=== PATIENT | female | born 1965 | race Caucasian/White ===

== ENCOUNTER 2016-07-28 15:26 | Emergency (ER) | payer SELFPAY ==
[~2016-07-28 15:26] MED LIST: Iopamidol 370 76% 100 ML VIAL ONE; Sodium Chloride 0.9% 1,000 ML BAG ONE
[2016-07-28] MEDS ORDERED: Ondansetron HCl/PF 4 MG/2 ML Vial ONE (15:53)
[2016-07-28] MEDS ORDERED: Ketorolac Tromethamine 30 MG/ML VIAL ONE (15:53)
[2016-07-28 16:29] LABS: #Basophils 0.1 thou/uL (0.0-0.2); #Eosinphils 0.1 thou/uL (0.0-0.7); #Lymphocytes 2.5 thou/uL (1.20-3.40); #Monocytes 0.6 thou/uL (0.11-0.59); #Neutrophils 4.7 thou/uL (1.40-6.50); %Basophils 1.3 % (0.0-1.0); %Eosinophils 1.4 % (0.0-10.0); %Lymphocytes 31.2 % (21.0-51.0); %Neutrophils 59.2 % (42.0-75.0); Hemoglobin 14.6 g/dL (12.0-16.0); Mean Corpuscular HGB CONC 33.7 g/dL (32.0-36.0); Mean Corpuscular Hemoglobin 29.3 pg (27.0-31.0); Mean Corpuscular Volume 86.7 fl (81.0-99.0); Mean Platelet Volume 9.4 fL (7.4-10.4); Platelet Count 213 thou/uL (130-400); RBC Distribution Width 12.4 % (11.5-14.5); Red Blood Cell (RBC) Count 4.98 mill/uL (4.20-5.40); White Blood Cell (WBC) Count 7.9 thou/uL (4.8-10.8)
[2016-07-28 16:35] LABS: Bilirubin Negative (Negative); Blood, Urine Negative (Negative); Glucose, Urine (Dipstick) Negative (Negative); Leukocyte Negative (Negative); Nitrite Negative (Negative); Protein, Urine (Dipstick) Negative (Neg-Trace); Urobilinogen 0.2 mg/dL (0.2-1.0); pH, Urine 7.5 (5.0-9.0)
[2016-07-28 16:40] LABS: ALT (SGPT) 18 U/L (0-55); AST (SGOT) 15 U/L (5-34); Albumin 4.1 g/dL (3.5-5.0); Alkaline Phosphatase 73 U/L (40-150); Anion Gap 19 mmol/L (10-20); BUN (Urea Nitrogen) 10 mg/dL (9.8-20.1); Bilirubin, Total 0.4 mg/dL (0.2-1.2); Calc. Creatinine Clearance 0 mL/min (70-130); Calcium 9.6 mg/dL (7.8-10.44); Carbon Dioxide 23 mmol/L (22-29); Chloride 102 mmol/L (98-107); Estimated GFR-MDRD 82; Glucose 93 mg/dL (70-105); Lipase 41 U/L (8-78); Protein, Total 7.1 g/dL (6.0-8.3); Sodium 140 mmol/L (136-145)
[2016-07-28 16:46] LABS: Troponin I Less than 0.010 ng/mL (< 0.028)
[2016-07-28 16:47] LABS: CKMB 0.6 ng/mL (0-6.6)
[2016-07-28 16:48] LABS: Clarity Hazy (Clear); RBC/HPF 0-3 HPF (0-3)
[2016-07-28 16:49] LABS: Bacteria/HPF Rare-Few HPF (None Seen); Crystals/HPF RARE AMORPH PHOS HPF (Negative); Renal Epithelial 0-3 HPF (0-3); Squamous Epithelial 21-50 HPF (0-3); Transitional Epithelial 0-3 HPF (0-3)
[2016-07-28 18:18] LABS: Bilirubin Negative (Negative); Blood, Urine Negative (Negative); Clarity Clear (Clear); Glucose, Urine (Dipstick) Negative (Negative); Leukocyte Negative (Negative); Nitrite Negative (Negative); Protein, Urine (Dipstick) Negative (Neg-Trace); Specific Gravity, Urine 1.015 (1.005-1.030); Urobilinogen 0.2 mg/dL (0.2-1.0)
[2016-07-28 18:19] LABS: RBC/HPF 0-3 HPF (0-3); WBC/HPF 0-3 HPF (0-3)
--- NOTE | 2016-07-28 20:06 | ERRECORD ---
[facility] EMERGENCY RECORD HPI ABDOMINAL PAIN (16:05 LHOD) CHIEF COMPLAINTS: Patient presents for evaluation of abdominal pain. HISTORIAN: History provided by patient. TIME COURSE: 1 1/2 WEEKS OF EPIGASTRIC DISCOMFORT AFTER EATING. VERY LITTLE APPETITE. ALSO INTERMITTENT RIGHT LOWER ABDOMEN TENDERNESS WITH RADIATION TO RIGHT LOWER BACK. NO NAUSEA, VOMITING OR DIARRHEA. NO MELENA. ROS (16:08 LHOD) CONSTITUTIONAL: Historian denies fever. CARDIOVASCULAR: Historian denies chest pain. RESPIRATORY: Historian denies cough, denies shortness of breath. GI: Historian reports abdominal pain, reports anorexia, reports appetite changes, denies diarrhea, denies melena, denies nausea, denies vomiting. GENITOURINARY FEMALE: Historian denies dysuria, denies vaginal bleeding. MUSCULOSKELETAL: Historian reports back pain, denies neck pain. RIGHT LOWER BACK PAIN. SKIN: Historian denies rash. NEUROLOGIC: Historian denies focal weakness, denies headache. HEMO/LYMPHATIC: Historian denies easy bruising. NOTES: All systems reviewed, negative except as described above. PAST MEDICAL HISTORY MEDICAL HISTORY: Past medical history includes history of diabetes, Type II, Age of onset: adult, diagnosed 8 months ago, on metformin. Degenerative disc disease. Arthritis. ovarian cancer in 2000 (see surgerical hx).CHRINIC LEFT SHOULDER NAD BACK PAIN. ([place] Jul 28, 2016 15:37 SCHI) FEMALE SURGICAL HISTORY: Csection 1985. Hysterectomy 2000. ([place] Jul 28, 2016 15:37 SCHI) PSYCHIATRIC HISTORY: Psychiatric history includes history of homicidal ideations, Psychiatric history includes, anxiety. ([place] Jul 28, 2016 15:37 SCHI) SOCIAL HISTORY: Patient denies alcohol use, Patient denies drug use, Patient currently uses tobacco, smokes cigarettes, Patient smokes 1 pack per day. ([place] Jul 28, 2016 15:37 SCHI) NOTES: Nursing records reviewed, HX OF HYSTERECTOMY AND OVARIAN CANCER IN 2000 WITH OOPHORECTOMY ALTHOUGH PT UNSURE IF ONE OR BOTH OVARIES REMOVED. (15:38 LHOD) KNOWN ALLERGIES Penicillins: Reaction: Anaphylaxis, Severity: Severe, Source: Patient CURRENT MEDICATIONS (15:37 SCHI) metFORMIN: TABLET : Strength - 1,000 mg : ORAL Patient Dose: 1000 mg Oral 2 times a day. &a-1R&a+25V*p+0X*[id number]*c202B*c15G*c2P*p-0X&a-25V&a+1R Name: Jacklyn Toledo : 1965 F51 MedRec: [id number] AcctNum: [id number] Prepared: Josiane Jul 28, 2016 20:10 by Interface Page 1 of 4 pMD [facility] EMERGENCY RECORD VITAL SIGNS VITAL SIGNS: BP: 141/84, Pulse: 88, Resp: 20, Temp: 98.6 (Tympanic), Pain: 4 (Intermittent), O2 sat: 98 on Room Air, Time: 07/28/2016 15:35. (15:35 SCHI) BP: 147/70, Pulse: 77, Resp: 18, Temp: 97.2 (Tympanic), Pain: 3, O2 sat: 100 on Room Air, Time: 07/28/2016 17:33. (17:33 SCHI) BP: 134/57, Pulse: 79, Resp: 18, Temp: 97.4 (Tympanic), Pain: 6, O2 sat: 99 on Room Air, Time: 07/28/2016 19:30. (19:30 LPOL) PHYSICAL EXAM (16:09 LHOD) CONSTITUTIONAL: Vital Signs Reviewed, Patient afebrile, Pulse normal, Blood pressure normal, Respiratory rate normal, Patient appears, in moderate pain distress, Patient alert and oriented to person, place and time. EYES: Sclera normal. NECK: Neck exam included findings of normal range of motion, Trachea midline. RESPIRATORY CHEST: Respiratory exam included findings of no respiratory distress, Breath sounds clear. CARDIOVASCULAR: Cardiovascular exam included findings of heart rate regular rate and rhythm, Heart sounds normal. ABDOMEN FEMALE: Abdominal exam included findings of abdomen tender, to the epigastric region, to the right lower quadrant, mild intensity, no mass, no pulsatile masses. BACK: Back exam normal. UPPER EXTREMITY: Upper extremity exam normal. LOWER EXTREMITY: Lower extremity exam normal. NEURO: Neuro exam findings include patient oriented to person, place and time, Speech normal. SKIN: no rash. EKG INTERPRETATION (16:14 LHOD) 12 LEAD EKG INTERPRETATION: 12 lead EKG interpreted by Emergency Department Physician at time of study, 12 lead EKG shows normal sinus rhythm, Rate (beats per minute): 71, with no ectopics, T waves normal, Dustin normal, IVCD, LOW VOLTAGE. RADIOLOGYINTERPRETATION (19:54 LHOD) ABDOMEN: Abdomen/pelvis CT scan, with contrast negative, no abdominal aortic aneurysm, no appendicitis, no diverticulitis, no kidney stones, no injuries, no obstruction, no free air, no hydronephrosis, LEFT LOWER LUNG IRREGULARITY, SEEN IN 2014, BUT RADIOLOGIST ADVISES F/U IN 6-8 MONTHS. MEDICATION ADMINISTRATION SUMMARY Drug Name: morphine intravenous, Dose Ordered: 4 mg, Route: IV Push, Status: Given, Time: 19:30 07/28/2016, &a-1R&a+25V*p+0X*[id number]*c202B*c15G*c2P*p-0X&a-25V&a+1R Name: Jacklyn Toledo : 1965 F51 MedRec: [id number] AcctNum: [id number] Prepared: Josiane Jul 28, 2016 20:10 by Interface Page 2 of 4 pMD [facility] EMERGENCY RECORD Drug Name: morphine intravenous, Dose Ordered: 4 mg, Route: IV Push, Status: Given, Time: 17:34 07/28/2016, Drug Name: Zofran intravenous, Dose Ordered: 8 mg, Route: IV Push, Status: Given, Time: 16:12 07/28/2016, Drug Name: Toradol intravenous, Dose Ordered: 30 mg, Route: IV Push, Status: Given, Time: 16:11 07/28/2016, Drug Name: Normal Saline, Dose Ordered: 250 mL/hr, Route: IV Fluid Infusion, Status: Given, Time: 16:10 07/28/2016, Detailed record available in Medication Service section. DOCTOR NOTES (16:30 LHOD) TEXT: 1630--AWAITING LAB. 1645--AWAITING UA. PT REPORTS PAIN RELIEVED WITH TORADOL. 1922--CT COMPLETE, AWAITING REPORT. 1954--PT ADVISED OF RADIOLOGISTS RECOMMENDATION FOR F/U CT OF CHEST (LEFT LUNG) IN 6-8 MONTHS. ADVISED NO CLEAR ETIOLOGY OF HER ABDOMINAL PAIN, SO ENCOURAGED HER TO F/U WITH HER CONTROL EQUIPMENT ELECTRICIAN (SINCE SHE HAS HX OF OVARIAN CA) AND MAY HAVE ADHESIONS OR OTHER CHRONIC PROCESS. ADVISED TO RETURN IF WORSE. PROBLEM LIST No recorded problems DIAGNOSIS (19:51 LHOD) FINAL: PRIMARY: GASTRITIS WITH POSSIBLE GASTROESOPHAGEAL REFLUX, ADDITIONAL: RIGHT FLANK PAIN / LOWER ABDOMEN PAIN---UNCERTAIN ETIOLOGY. PRESCRIPTION Protonix oral: GRANULES DELAYED RELEASE FOR SUSP PACKET : 40 mg : ORAL : Quantity: 1 Unit: tab(s) Route: ORAL Schedule: once a day (in the morning) Dispense: 30 May substitute. Refills: No Refills . (19:51 LHOD) NOTES: No Refills. (19:51 LHOD) Tylenol-Codeine #3: TABLET : 300 mg-30 mg : ORAL : Quantity: 1-2 Unit: tab(s) Route: ORAL Schedule: every 4 hours prn Dispense: 6 May substitute. Refills: No Refills . (19:52 LHOD) NOTES: No Refills. (19:52 LHOD) Zofran ODT: TABLET, RAPID DISSOLVE : 8 mg : ORAL : Quantity: 1 Unit: tab(s) Route: ORAL Schedule: every 6 hours PRN Dispense: 4 May substitute. Refills: No Refills . (19:52 LHOD) NOTES: ^s=No Refills No Refills. (19:52 LHOD) DISPOSITION PATIENT: Disposition Type: Discharge, Disposition: *Discharge Home, Condition: Good. (19:51 LHOD) Patient left the department. (20:02 LPOL) &a-1R&a+25V*p+0X*[id number]*c202B*c15G*c2P*p-0X&a-25V&a+1R Name: Jacklyn Toledo : 1965 F51 MedRec: [id number] AcctNum: [id number] Prepared: Josiane Jul 28, 2016 20:10 by Interface Page 3 of 4 pMD [facility] EMERGENCY RECORD [place]: LHOD=MD Anastacia, Justin LPOL=RHIANNON Russell, Kirsty MEJIA=RHIANNON Zhu, Vi &a-1R&a+25V*p+0X*[id number]*c202B*c15G*c2P*p-0X&a-25V&a+1R Name: Jacklyn Toledo Nader : 1965 F51 MedRec: [id number] AcctNum: [id number] Prepared: Josiane Jul 28, 2016 20:10 by Interface Page 4 of 4 pMD MTDD
--- NOTE | 2016-07-28 20:11 | PICIS ---
[facility] EMERGENCY RECORD TRIAGE (FriJul 28, 2016 15:37 SCHI) PATIENT: NAME: Jacklyn Toledo, AGE: 51, GENDER: female, : Fri1965, TIME OF GREET: FriJul 28, 2016 15:26, PREFERRED LANGUAGE: Romanian, RACE: WHITE, ETHNICITY: Not or , FALL RISK: NO, ECODE BILLING MAP: [facility], SSN: [id number], Zip Code: [address], KG WEIGHT: 83.01, PHONE: , , , PERSON ID: [id number], PCP: NONE. (FriJul 28, 2016 15:37 SCHI) TRIAGE NOTES: NAUSEA, LOW RIGHT BACK PAIN WITH URINATION, ACHING TO LOWER STOMACH. (FriJul 28, 2016 15:37 SCHI) COMPLAINT: ABDOMINAL & LOWER BACK PAIN. (FriJul 28, 2016 15:37 SCHI) ADMISSION: URGENCY: 4 Non Urgent, ADMISSION SOURCE: Home, TRANSPORT: Walk-in, BED: ED -04. (FriJul 28, 2016 15:37 SCHI) ASSESSMENT: Assessment: ALERT AND ORIENTED X 4, SKIN WARM AND DRY RESP EVEN AND UNLABORED,. (FriJul 28, 2016 15:37 SCHI) PAIN: Patient complains of pain described as, aching, on a scale 0-10 patient rates pain as 4, Location LOW BACK AND ABD, Pain is intermittent. (FriJul 28, 2016 15:37 SCHI) TRIAGE SCREENING: Patient denies suicidal ideation, Patient denies presence of domestic violence. (FriJul 28, 2016 15:37 SCHI) PROVIDERS: TRIAGE NURSE: Vi Zhu RN. (FriJul 28, 2016 15:37 SCHI) VITAL SIGNS: BP 141/84, Pulse 88, Resp 20, Temp 98.6, (Tympanic), Pain 4, (Intermittent), O2 Sat 98, on Room Air, Time 07/28/2016 15:35. (15:35 SCHI) PREVIOUS VISIT ALLERGIES: Penicillins. (FriJul 28, 2016 15:37 SCHI) KNOWN ALLERGIES Penicillins: Reaction: Anaphylaxis, Severity: Severe, Source: Patient CURRENT MEDICATIONS (15:37 SCHI) metFORMIN: TABLET : Strength - 1,000 mg : ORAL Patient Dose: 1000 mg Oral 2 times a day. VITAL SIGNS VITAL SIGNS: BP: 141/84, Pulse: 88, Resp: 20, Temp: 98.6 (Tympanic), Pain: 4 (Intermittent), O2 sat: 98 on Room Air, Time: 07/28/2016 15:35. (15:35 SCHI) BP: 147/70, Pulse: 77, Resp: 18, Temp: 97.2 (Tympanic), Pain: 3, O2 sat: 100 on Room Air, Time: 07/28/2016 17:33. (17:33 SCHI) BP: 134/57, Pulse: 79, Resp: 18, Temp: 97.4 (Tympanic), Pain: 6, O2 sat: 99 on Room Air, Time: 07/28/2016 19:30. (19:30 LPOL) NURSING ASSESSMENT: GENITOURINARY (16:00 SCHI) CONSTITUTIONAL: Patient arrives ambulatory, Gait steady, History &a-1R&a+25V*p+0X*p5702O*c202B*c15G*c2P*p-0X&a-25V&a+1R Name: Jacklyn Toledo : 1965 F51 MedRec: [id number] AcctNum: [id number] Prepared: Josiane Jul 28, 2016 20:15 by Interface Page 1 of 11 pMD [facility] EMERGENCY RECORD obtained from patient, Patient appears comfortable, Patient cooperative, Patient alert, Oriented to person, place and time, Skin warm, Skin dry, Skin normal in color, Mucous membranes pink, Mucous membranes moist, Patient is well-groomed, Patient complains of PAIN,PRESSURE, BURNING WITH URINATION. PAIN FEMALE: aching pain, pressure pain, to the lower abdomen, Pain radiates, to the right flank, AND BACK, intermittent, on a scale 0-10 patient rates pain as 4, . GENITOURINARY FEMALE: Associated with urinary complaints, urgency. ABDOMEN: Abdomen soft, non-tender, Associated with nausea. NOTES: Emotional support needed and given, Patient tolerated procedure well. SAFETY: Side rails up, Cart/Stretcher in lowest position, Family at bedside, Hospital ID band on. NURSING PROCEDURE: DISCHARGE NOTE (20:00 LPOL) DISCHARGE: Patient discharged to home, ambulating without assistance, family driving, accompanied by //partner, Summary of Care printed/ provided, Patient requested and was provided an electronic copy of Discharge Instructions, Transition record given to patient, Discharge instructions given to patient, Simple or moderate discharge teaching performed, by pamela, Prescriptions given and instructions on side effects given, Medication reconciliation form given, Above person(s) verbalized understanding of discharge instructions and follow-up care, Patient treated and evaluated by physician. BELONGINGS: Belongings and valuables with patient upon arrival to the Emergency Department include:, Belongings remain with patient, Valuables remain with patient. NURSING PROCEDURE: EKG CHART (16:00 [facility] PATIENT IDENTIFIER: Patient actively involved in identification process, Patient's identity verified by patient stating name, Patient's identity verified by patient stating date. EKG: EKG indicated for complaint of palpitations, 12 lead EKG performed on the left chest, done by CODY JURADO. NOTES: Emotional support needed and given, Patient tolerated procedure well. SAFETY: Side rails up, Cart/Stretcher in lowest position, Family at bedside, Hospital ID band on. NURSING PROCEDURE: IV PATIENT IDENITIFIER: Patient actively involved in identification process, Patient's identity verified by patient stating name, Patient's identity verified by patient stating date, Patient's identity verified by hospital ID bracelet. (16:05 [facility]) IV SITE 1: IV therapy indicated for hydration, IV therapy &a-1R&a+25V*p+0X*i2690M*c202B*c15G*c2P*p-0X&a-25V&a+1R Name: Jacklyn Toledo : 1965 F51 MedRec: [id number] AcctNum: [id number] Prepared: Josiane Jul 28, 2016 20:15 by Interface Page 2 of 11 pMD [facility] EMERGENCY RECORD indicated for medication administration, IV established, to the left antecubital, using a 20 gauge catheter, in one attempt, IV site prepped with chloraprep, Saline lock established, Flushed with normal saline (mls): 10, Labs drawn at time of placement, labeled in the presence of the patient and sent to lab, Notes: X 2. (16:05 [facility]) FOLLOW-UP SITE 1: IV discontinued, due to patient being discharged, catheter intact. (19:53 LPOL) NURSING PROCEDURE: NURSE NOTES (16:00 SCHI) NURSES NOTES: Notes: all times are approximate due to care being provided, then documented. NURSING PROCEDURE: URINE COLLECTION (15:45 SCHI) PATIENT IDENTIFIER: Patient actively involved in identification process, Patient's identity verified by patient stating name, Patient's identity verified by patient stating date, Patient's identity verified by hospital ID bracelet. URINE COLLECTION FEMALE: Urine collected by mid-stream clean catch, urine yellow in color, Specimen labeled in the presence of the patient and sent to lab. SAFETY: Side rails up, Cart/Stretcher in lowest position, Family at bedside, Hospital ID band on. ORDER DETAILS Order Name: Cardiac Profile w/CKMB & Troponin - I, Status: Active, Time: 15:48 07/28/2016, User: RICHARD, - Ordered for: MD Galaviz Lefayne, - Entered by: MD Galaviz Lefayne - Josiane Jul 28, 2016 15:48, - Quantity: 1, Order Name: CATH STRAIGHT ED, Status: Done, Time: 17:25 07/28/2016, User: SCHI, - Ordered for: MD Galaviz Lefayne, - Entered by: MD Galaviz Lefayne - Josiane Jul 28, 2016 17:17, - Quantity: 1, Order Name: CBC with Differential, Status: Active, Time: 15:48 07/28/2016, User: RICHARD, - Ordered for: MD Galaviz Lefayne, - Entered by: MD Galaviz Lefayne - Josiane Jul 28, 2016 15:48, - Quantity: 1, Order Name: Comprehensive Metabolic Panel, Status: Active, Time: 15:48 07/28/2016, User: DESMONDOD, - Ordered for: MD Galaviz Lefayne, - Entered by: MD Galaviz Lefayne - Josiane Jul 28, 2016 15:48, - Quantity: 1, Order Name: CT Appendix Protocol, Status: Active, Time: 17:16 07/28/2016, User: LHOD, - Ordered for: MD Galaviz Lefayne, - Entered by: MD Galaviz Lefayne - Josiane Jul 28, 2016 17:16, &a-1R&a+25V*p+0X*w0541Z*c202B*c15G*c2P*p-0X&a-25V&a+1R Name: Jacklyn Toledo : 1965 F51 MedRec: [id number] AcctNum: [id number] Prepared: Josiane Jul 28, 2016 20:15 by Interface Page 3 of 11 [facility] EMERGENCY RECORD - Quantity: 1, Order Name: EKG 12 Lead in Emergency Room, Status: Active, Time: 15:48 07/28/2016, User: RICHARD, - Ordered for: MD Galaviz Lefayne, - Entered by: MD Galaviz Lefayne - Josiane Jul 28, 2016 15:48, - Quantity: 1, Order Name: Lipase, Status: Active, Time: 15:48 07/28/2016, User: RICHARD, - Ordered for: MD Galaviz Lefayne, - Entered by: MD Galaviz Lefayne - Josiane Jul 28, 2016 15:48, - Quantity: 1, Order Name: REPEAT VITAL SIGNS / TEMP, Status: Done, Time: 19:32 07/28/2016, User: LPOL, - Ordered for: MD Galaviz Lefayne, - Entered by: MD Galaviz Lefayne - Josiane Jul 28, 2016 19:23, - Quantity: 1, Order Name: SALINE LOCK, Status: Done, Time: 16:16 07/28/2016, User: SCHI, - Ordered for: MD Galaviz Lefayne, - Entered by: MD Galaviz Lefayne - Josiane Jul 28, 2016 15:48, - Quantity: 1, Order Name: Urinalysis with Microscopic, Status: Active, Time: 17:17 07/28/2016, User: RICHARD, - Ordered for: MD Galaviz Lefayne, - Entered by: MD Galaviz Lefayne - Sun Jul 28, 2016 17:17, - Quantity: 1, Order Name: Urinalysis with Microscopic, Status: Active, Time: 15:39 07/28/2016, User: RICHARD, - Ordered for: MD Galaviz Lefayne, - Entered by: MD Galaviz Lefayne - Sun Jul 28, 2016 15:39, - Quantity: 1. MEDICATION ADMINISTRATION SUMMARY Drug Name: morphine intravenous, Dose Ordered: 4 mg, Route: IV Push, Status: Given, Time: 19:30 07/28/2016, Drug Name: morphine intravenous, Dose Ordered: 4 mg, Route: IV Push, Status: Given, Time: 17:34 07/28/2016, Drug Name: Zofran intravenous, Dose Ordered: 8 mg, Route: IV Push, Status: Given, Time: 16:12 07/28/2016, Drug Name: Toradol intravenous, Dose Ordered: 30 mg, Route: IV Push, Status: Given, Time: 16:11 07/28/2016, Drug Name: Normal Saline, Dose Ordered: 250 mL/hr, Route: IV Fluid Infusion, Status: Given, Time: 16:10 07/28/2016, Detailed record available in Medication Service section. MEDICATION SERVICE morphine intravenous: Order: morphine intravenous (morphine sulfate) - Dose: 4 mg : IV Push Ordered by: Justin Galaviz MD Entered by: MD Josiane Burgess Jul 28, 2016 17:15 , &a-1R&a+25V*p+0X*c0434I*c202B*c15G*c2P*p-0X&a-25V&a+1R Name: Jacklyn Toledo : 1965 F51 MedRec: [id number] AcctNum: [id number] Prepared: Josiane Jul 28, 2016 20:15 by Interface Page 4 of 11 D [facility] EMERGENCY RECORD Acknowledged by: RHIANNON Beatty Jul 28, 2016 17:23 Documented as given by: RHIANNON Beatty Jul 28, 2016 17:34 Patient, Medication, Dose, Route and Time verified prior to administration. IV SITE #1 IVP, subsequent different medication, Awake and alert- acceptable, Catheter placement confirmed via flush prior to administration, IV site without signs or symptoms of infiltration during medication administration, No swelling during administration, No drainage during administration, IV flushed after administration, Correct patient, time, route, dose and medication confirmed prior to administration, Patient advised of actions and side-effects prior to administration, Allergies confirmed and medications reviewed prior to administration. : Follow Up : Response assessment performed, No signs or symptoms of allergic reaction noted, Decreased pain, _IV SITE #1:_. (19:32 LPOL) morphine intravenous: Order: morphine intravenous (morphine sulfate) - Dose: 4 mg : IV Push Ordered by: Justin Galaviz MD Entered by: Justin Galaviz MD [place] Jul 28, 2016 19:22 , Acknowledged by: RHIANNON Gavin Jul 28, 2016 19:22 Documented as given by: RHIANNON Gavin Jul 28, 2016 19:30 Patient, Medication, Dose, Route and Time verified prior to administration. Amount given: 4 mg, IV SITE #1 IVP, repeat same medication, Slowly, Awake and alert- acceptable, Catheter placement confirmed via flush prior to administration, IV site without signs or symptoms of infiltration during medication administration, No swelling during administration, No drainage during administration, IV flushed after administration, Correct patient, time, route, dose and medication confirmed prior to administration, Patient advised of actions and side-effects prior to administration, Allergies confirmed and medications reviewed prior to administration. : Follow Up : Response assessment performed, No signs or symptoms of allergic reaction noted, Decreased pain, _IV SITE #1:_. (19:53 LPOL) Normal Saline: Order: Normal Saline (0.9 % sodium chloride) - Dose: 250 mL/hr : IV Fluid Infusion Ordered by: Justin Galaviz MD Entered by: Justin Galaviz MD [place] Jul 28, 2016 15:49 Documented as given by: RHIANNON Beatty Jul 28, 2016 16:10 Patient, Medication, Dose, Route and Time verified prior to administration. IV SITE #1 IV fluids established for hydration, IV SITE #1 into left antecubital, IV SITE #1 1st bag hung, amount 1 Liter hung, IV SITE #1 Rate of infusion (non-bolus) Infusing at 250 ml/hr, via primary tubing, Catheter placement confirmed via flush prior to administration, IV site without signs or symptoms of infiltration during medication administration, No swelling during administration, No drainage during administration, IV flushed after administration, &a-1R&a+25V*p+0X*z1701W*c202B*c15G*c2P*p-0X&a-25V&a+1R Name: Jacklyn Toledo : 1965 F51 MedRec: [id number] AcctNum: [id number] Prepared: FriJul 28, 2016 20:15 by Interface Page 5 of 11 pMD [facility] EMERGENCY RECORD Correct patient, time, route, dose and medication confirmed prior to administration, Patient advised of actions and side-effects prior to administration, Allergies confirmed and medications reviewed prior to administration. : Follow Up : Response assessment performed, No signs or symptoms of allergic reaction noted, Decreased pain, _IV SITE #1:_, IV fluid infusion discontinued, on FriJul 28, 2016 18:45, Total fluid hydration time IV site 1 2 hours, 35 minutes, ., Total amount infused: 1000. (19:32 LPOL) Toradol intravenous: Order: Toradol intravenous (ketorolac tromethamine) - Dose: 30 mg : IV Push Ordered by: Justin Galaviz MD Entered by: MD Josiane Burgess Jul 28, 2016 15:49 Documented as given by: RHIANNON Beatty Jul 28, 2016 16:11 Patient, Medication, Dose, Route and Time verified prior to administration. IV SITE #1 IVP, initial medication, Slowly, Catheter placement confirmed via flush prior to administration, IV site without signs or symptoms of infiltration during medication administration, No swelling during administration, No drainage during administration, IV flushed after administration, Correct patient, time, route, dose and medication confirmed prior to administration, Patient advised of actions and side-effects prior to administration, Allergies confirmed and medications reviewed prior to administration. : Follow Up : No signs or symptoms of allergic reaction noted, _IV SITE #1:_. (19:33 LPOL) Zofran intravenous: Order: Zofran intravenous (ondansetron HCl) - Dose: 8 mg : IV Push Ordered by: Justin Galaviz MD Entered by: MD Josiane Burgess Jul 28, 2016 15:49 Documented as given by: RHIANNON Beatty Jul 28, 2016 16:12 Patient, Medication, Dose, Route and Time verified prior to administration. IV SITE #1 IVP, subsequent different medication, Catheter placement confirmed via flush prior to administration, IV site without signs or symptoms of infiltration during medication administration, No swelling during administration, No drainage during administration, IV flushed after administration, Correct patient, time, route, dose and medication confirmed prior to administration, Patient advised of actions and side-effects prior to administration, Allergies confirmed and medications reviewed prior to administration. : Follow Up : Response assessment performed, No signs or symptoms of allergic reaction noted, Decreased vomiting, Decreased nausea, _IV SITE #1:_. (19:34 LPOL) HPI ABDOMINAL PAIN (16:05 LHOD) CHIEF COMPLAINTS: Patient presents for evaluation of abdominal pain. HISTORIAN: History provided by patient. TIME COURSE: 1 1/2 WEEKS OF EPIGASTRIC DISCOMFORT AFTER EATING. VERY LITTLE APPETITE. ALSO INTERMITTENT &a-1R&a+25V*p+0X*n0241G*c202B*c15G*c2P*p-0X&a-25V&a+1R Name: Jacklyn Toledo : 1965 F51 MedRec: [id number] AcctNum: [id number] Prepared: Josiane Jul 28, 2016 20:15 by Interface Page 6 of 11 pMD [facility] EMERGENCY RECORD RIGHT LOWER ABDOMEN TENDERNESS WITH RADIATION TO RIGHT LOWER BACK. NO NAUSEA, VOMITING OR DIARRHEA. NO MELENA. ROS (16:08 LHOD) CONSTITUTIONAL: Historian denies fever. CARDIOVASCULAR: Historian denies chest pain. RESPIRATORY: Historian denies cough, denies shortness of breath. GI: Historian reports abdominal pain, reports anorexia, reports appetite changes, denies diarrhea, denies melena, denies nausea, denies vomiting. GENITOURINARY FEMALE: Historian denies dysuria, denies vaginal bleeding. MUSCULOSKELETAL: Historian reports back pain, denies neck pain. RIGHT LOWER BACK PAIN. SKIN: Historian denies rash. NEUROLOGIC: Historian denies focal weakness, denies headache. HEMO/LYMPHATIC: Historian denies easy bruising. NOTES: All systems reviewed, negative except as described above. PAST MEDICAL HISTORY MEDICAL HISTORY: Past medical history includes history of diabetes, Type II, Age of onset: adult, diagnosed 8 months ago, on metformin. Degenerative disc disease. Arthritis. ovarian cancer in 2000 (see surgerical hx).CHRINIC LEFT SHOULDER NAD BACK PAIN. (Josiane Jul 28, 2016 15:37 SCHI) FEMALE SURGICAL HISTORY: Csection 1985. Hysterectomy 2000. (Josiane Jul 28, 2016 15:37 SCHI) PSYCHIATRIC HISTORY: Psychiatric history includes history of homicidal ideations, Psychiatric history includes, anxiety. (Josiane Jul 28, 2016 15:37 SCHI) SOCIAL HISTORY: Patient denies alcohol use, Patient denies drug use, Patient currently uses tobacco, smokes cigarettes, Patient smokes 1 pack per day. (Josiane Jul 28, 2016 15:37 SCHI) NOTES: Nursing records reviewed, HX OF HYSTERECTOMY AND OVARIAN CANCER IN 2001 WITH OOPHORECTOMY ALTHOUGH PT UNSURE IF ONE OR BOTH OVARIES REMOVED. (15:38 LHOD) PHYSICAL EXAM (16:09 LHOD) CONSTITUTIONAL: Vital Signs Reviewed, Patient afebrile, Pulse normal, Blood pressure normal, Respiratory rate normal, Patient appears, in moderate pain distress, Patient alert and oriented to person, place and time. EYES: Sclera normal. NECK: Neck exam included findings of normal range of motion, Trachea midline. RESPIRATORY CHEST: Respiratory exam included findings of no respiratory distress, Breath sounds clear. CARDIOVASCULAR: Cardiovascular exam included findings of heart rate regular rate and rhythm, Heart sounds normal. ABDOMEN FEMALE: Abdominal exam included findings of abdomen &a-1R&a+25V*p+0X*k4667K*c202B*c15G*c2P*p-0X&a-25V&a+1R Name: Jacklyn Toledo : 1965 F51 MedRec: [id number] AcctNum: [id number] Prepared: Josiane Jul 28, 2016 20:15 by Interface Page 7 of 11 pMD [facility] EMERGENCY RECORD tender, to the epigastric region, to the right lower quadrant, mild intensity, no mass, no pulsatile masses. BACK: Back exam normal. UPPER EXTREMITY: Upper extremity exam normal. LOWER EXTREMITY: Lower extremity exam normal. NEURO: Neuro exam findings include patient oriented to person, place and time, Speech normal. SKIN: no rash. LAB INTERPRETATION (16:31 LHOD) INTERPRETATION: I reviewed the lab results, CBC normal, Chemistry normal, Lipase normal, Urinalysis normal. EVENTS TRANSFER: Triage to Emergency Main ED -04. (Josiane Jul 28, 2016 15:37 SCHI) Removed from Emergency Main ED -04. (20:02 LPOL) RADIOLOGYINTERPRETATION (19:54 LHOD) ABDOMEN: Abdomen/pelvis CT scan, with contrast negative, no abdominal aortic aneurysm, no appendicitis, no diverticulitis, no kidney stones, no injuries, no obstruction, no free air, no hydronephrosis, LEFT LOWER LUNG IRREGULARITY, SEEN IN 2015, BUT RADIOLOGIST ADVISES F/U IN 6-8 MONTHS. EKG INTERPRETATION (16:14 LHOD) 12 LEAD EKG INTERPRETATION: 12 lead EKG interpreted by Emergency Department Physician at time of study, 12 lead EKG shows normal sinus rhythm, Rate (beats per minute): 71, with no ectopics, T waves normal, [place] normal, IVCD, LOW VOLTAGE. DOCTOR NOTES (16:30 LHOD) TEXT: 163--AWAITING LAB. 1644--AWAITING UA. PT REPORTS PAIN RELIEVED WITH TORADOL. 1922--CT COMPLETE, AWAITING REPORT. 1954--PT ADVISED OF RADIOLOGISTS RECOMMENDATION FOR F/U CT OF CHEST (LEFT LUNG) IN 6-8 MONTHS. ADVISED NO CLEAR ETIOLOGY OF HER ABDOMINAL PAIN, SO ENCOURAGED HER TO F/U WITH HER PERFECT BINDER OPERATOR (SINCE SHE HAS HX OF OVARIAN CA) AND MAY HAVE ADHESIONS OR OTHER CHRONIC PROCESS. ADVISED TO RETURN IF WORSE. PROBLEM LIST No recorded problems DIAGNOSIS (19:51 LHOD) FINAL: PRIMARY: GASTRITIS WITH POSSIBLE GASTROESOPHAGEAL REFLUX, ADDITIONAL: RIGHT FLANK PAIN / LOWER ABDOMEN PAIN---UNCERTAIN ETIOLOGY. &a-1R&a+25V*p+0X*r3416O*c202B*c15G*c2P*p-0X&a-25V&a+1R Name: Jacklyn Toledo : 1965 F51 MedRec: [id number] AcctNum: [id number] Prepared: Josiane Jul 28, 2016 20:15 by Interface Page 8 of 11 pMD [facility] EMERGENCY RECORD DISPOSITION PATIENT: Disposition Type: Discharge, Disposition: *Discharge Home, Condition: Good. (19:51 LHOD) Patient left the department. (20:02 LPOL) INSTRUCTION (19:53 LHOD) DISCHARGE: GASTRITIS VS. ULCER, ABDOMINAL PAIN, UNKNOWN CAUSE, (FEMALE). FOLLOWUP: Follow up with Primary Care Physician in 5 days, Follow up with Specialist in 5 days. SPECIAL: RADIOLOGIST SUGGESTS FOLLOW UP CAT SCAN OF YOUR LEFT LOWER LUNG IN 6-8 MONTHS. FOLLOW UP WITH YOUR PERFECT BINDER OPERATOR. *RETURN IF WORSE Follow-up with your PCP. PRESCRIPTION Protonix oral: GRANULES DELAYED RELEASE FOR SUSP PACKET : 40 mg : ORAL : Quantity: 1 Unit: tab(s) Route: ORAL Schedule: once a day (in the morning) Dispense: 30 May substitute. Refills: No Refills . (19:51 LHOD) NOTES: No Refills. (19:51 LHOD) Tylenol-Codeine #3: TABLET : 300 mg-30 mg : ORAL : Quantity: 1-2 Unit: tab(s) Route: ORAL Schedule: every 4 hours prn Dispense: 6 May substitute. Refills: No Refills . (19:52 LHOD) NOTES: No Refills. (19:52 LHOD) Zofran ODT: TABLET, RAPID DISSOLVE : 8 mg : ORAL : Quantity: 1 Unit: tab(s) Route: ORAL Schedule: every 6 hours PRN Dispense: 4 May substitute. Refills: No Refills . (19:52 LHOD) NOTES: ^s=No Refills No Refills. (19:52 LHOD) IMAGING *DISCHARGE INSTRUCTIONS RECEIPT: Image captured from scanner. (20:00 LPOL) Page 2 added. Image captured from scanner. (20:01 LPOL) *EKG: Image captured from scanner. (20:01 LPOL) *SUPPLY CHARGE SHEET: Image captured from scanner. (20:01 LPOL) ADMIN (20:05 LHOD) DIGITAL SIGNATURE: MD Galaviz Lefayne. RESULTS LABORATORY: CBC with Differential Collection DT: Josiane Jul 28, 2016 16:18, White Blood Cell (WBC) Count 7.9 thou/uL, Range (4.8-10.8), Red Blood Cell (RBC) Count 4.98 mill/uL, Range (4.20-5.40), Hemoglobin 14.6 g/dL, Range (12.0-16.0), &a-1R&a+25V*p+0X*i6048J*c202B*c15G*c2P*p-0X&a-25V&a+1R Name: IshdariusJacklyn : 1965 F51 MedRec: [id number] AcctNum: [id number] Prepared: Josiane Jul 28, 2016 20:15 by Interface Page 9 of 11 pMD [facility] EMERGENCY RECORD Hematocrit 43.2 %, Range (36.0-47.0), Mean Corpuscular Volume 86.7 fl, Range (81.0-99.0), Mean Corpuscular Hemoglobin 29.3 pg, Range (27.0-31.0), Mean Corpuscular HGB CONC 33.7 g/dL, Range (32.0-36.0), RBC Distribution Width 12.4 %, Range (11.5-14.5), Platelet Count 213 thou/uL, Range (130-400), Mean Platelet Volume 9.4 fL, Range (7.4-10.4), %Neutrophils 59.2 %, Range (42.0-75.0), %Lymphocytes 31.2 %, Range (21.0-51.0), %Monocytes 7.0 %, Range (0.0-10.0), %Eosinophils 1.4 %, Range (0.0-10.0), *%Basophils 1.3 - H %, Range (0.0-1.0), #Neutrophils 4.7 thou/uL, Range (1.40-6.50), #Lymphocytes 2.5 thou/uL, Range (1.20-3.40), *#Monocytes 0.6 - H thou/uL, Range (0.11-0.59), #Eosinphils 0.1 thou/uL, Range (0.0-0.7), #Basophils 0.1 thou/uL, Range (0.0-0.2). (16:31 LHOD) Lipase Collection DT: [place] Jul 28, 2016 16:18, Lipase 41 U/L, Range (8-78). (16:42 LHOD) Comprehensive Metabolic Panel Collection DT: [place] Jul 28, 2016 16:18, Sodium 140 mmol/L, Range (136-145), Potassium 4.0 mmol/L, Range (3.5-5.1), Chloride 102 mmol/L, Range (98-107), Carbon Dioxide 23 mmol/L, Range (22-29), Anion Gap 19 mmol/L, Range (10-20), BUN (Urea Nitrogen) 10 mg/dL, Range (9.8-20.1), Creatinine 0.74 mg/dL, Range (0.6-1.1), Estimated GFR-MDRD 82 , Reference Range for Estimated GFR: Greater than 90, mL/min/1.73 m2 NOTE: The MDRD equation has not been validated for use, with the elderly (over 70 years of age), women, patients with, serious comorbid condition or persons with extremes of body size, muscle, mass, or nutritional status. , Glucose 93 mg/dL, Range (70-105), Calcium 9.6 mg/dL, Range (7.8-10.44), Bilirubin, Total 0.4 mg/dL, Range (0.2-1.2), Protein, Total 7.1 g/dL, Range (6.0-8.3), NOTE: Plasma values are generally 0.3 to 0.5 g/dL higher than serum values, due to the presence of fibrinogen. , Albumin 4.1 g/dL, Range (3.5-5.0), Globulin 3.0 g/dL, Range (2.4-3.5), Alb/Glob Ratio 1.4 g/dL, Range (1.2-2.2), Alkaline Phosphatase 73 U/L, Range (40-150), AST (SGOT) 15 U/L, Range (5-34), ALT (SGPT) 18 U/L, Range (0-55). (16:42 LHOD) Urinalysis with Microscopic Collection DT: Josiane Jul 28, 2016 16:18, Color Yellow , Range (Yellow), , Clarity Hazy , Range (Clear), &a-1R&a+25V*p+0X*[id number]*c202B*c15G*c2P*p-0X&a-25V&a+1R Name: Jacklyn Toledo : 1965 F51 MedRec: [id number] AcctNum: [id number] Prepared: Josiane Jul 28, 2016 20:15 by Interface Page 10 of 11 pMD [facility] EMERGENCY RECORD Specific [place], Urine 1.020 , Range (1.005-1.030), pH, Urine 7.5 , Range (5.0-9.0), Leukocyte Negative , Range (Negative), Nitrite Negative , Range (Negative), Protein, Urine (Dipstick) Negative mg/dL, Range (Neg-Trace), Glucose, Urine (Dipstick) Negative mg/dL, Range (Negative), Ketone, Urine Negative mg/dL, Range (Negative), Urobilinogen 0.2 mg/dL, Range (0.2-1.0), Bilirubin Negative , Range (Negative), Blood, Urine Negative , Range (Negative), RBC/HPF 0-3 HPF, Range (0-3), *WBC/HPF 7-10 - H HPF, Range (0-3), *Squamous Epithelial 21-50 - H HPF, Range (0-3), Transitional Epithelial 0-3 HPF, Range (0-3), Renal Epithelial 0-3 HPF, Range (0-3), Bacteria/HPF Rare-Few HPF, Range (None Seen). (16:50 LHOD) Cardiac Profile w/CKMB & TropI Collection DT: Josiane Jul 28, 2016 16:18, CKMB 0.6 ng/mL, Range (0-6.6), Troponin I Less than 0.010 ng/mL, Range (< 0.028), Reference Range , 0.00 - 0.028 ng/mL Negative 0.029 - 0.29 ng/mL , Indeterminate Greater or Equal to 0.3 ng/mL Strongly suggests [place] , . (16:50 LHOD) Urinalysis with Microscopic Collection DT: Josiane Jul 28, 2016 18:18, See comment below , Comment REPEAT--CATH URINE , Color Yellow , Range (Yellow), Clarity Clear , Range (Clear), Specific [place], Urine 1.015 , Range (1.005-1.030), pH, Urine 7.0 , Range (5.0-9.0), Leukocyte Negative , Range (Negative), Nitrite Negative , Range (Negative), Protein, Urine (Dipstick) Negative mg/dL, Range (Neg-Trace), Glucose, Urine (Dipstick) Negative mg/dL, Range (Negative), Ketone, Urine Negative mg/dL, Range (Negative), Urobilinogen 0.2 mg/dL, Range (0.2-1.0), Bilirubin Negative , Range (Negative), Blood, Urine Negative , Range (Negative), RBC/HPF 0-3 HPF, Range (0-3), WBC/HPF 0-3 HPF, Range (0-3). (18:22 JAZIEL) Mcpherson: LHOD=MD Anastacia, Justin LPOL=RHIANNON Russell, Kirsty ARAYAEB=RHIANNON Garcia, Josefina MEJIA=RHIANNON Zhu, Slinda &a-1R&a+25V*p+0X*[id number]*c202B*c15G*c2P*p-0X&a-25V&a+1R Name: Jacklyn Toledo : 1965 F51 MedRec: [id number] AcctNum: [id number] Prepared: Josiane Jul 28, 2016 20:15 by Interface Page 11 of 11 pMD MTDD
--- NOTE | 2016-07-28 22:17 | CT ---
CT OF ABDOMEN AND PELVIS: Date: 07-28-16 Comparison: 03-23-15 History: Right upper quadrant, right lower quadrant pain, assess for appendicitis. Technique: Serial axial CT imaging at 5 mm intervals from lung bases through the pubic symphysis wi IV and oral contrast. FINDINGS: There is extensive decreased density within the left lower lobe with a prominent central vessel, a s table finding, likely related to developmental abnormality. Bilateral lung bases are grossly unchan ged. There is no free intraperitoneal air. The liver, gallbladder, spleen, pancreas, adrenal gland s and kidneys appear grossly unremarkable. The appendix appears within normal limits. No bowel inflammatory change or evidence of obstruction. Vascular structures of the abdomen/pelvis appear patent. There is mild distal esophageal wall thi ckening versus under distention. No retroperitoneal or pelvic lymphadenopathy. No acute osseous ab normality. At the left lung base, surrounding the prominent vessel which is centrally located within fairly can ent lung, there is adjacent nodular density with a peripheral irregular contour, similar but slightl y more conspicuous than on the prior exam. Given this change, follow up advised. IMPRESSION: No evidence for appendicitis. Chronic changes as above. Recommend a follow up CT examination of th e chest in 6-7 months to re-evaluate the left basilar findings. POS: ALBERTO
== END 2016-07-28 20:00 | disposition home or self-care (01) ==
LOC: MADERS 15:26
DX: K29.70 Gastritis, unspecified, without bleeding (principal); E11.9 Type 2 diabetes mellitus without complications; F41.9 Anxiety disorder, unspecified; F17.210 Nicotine dependence, cigarettes, uncomplicated; Z90.710 Acquired absence of both cervix and uterus; Z85.43 Personal history of malignant neoplasm of ovary; Z79.84 Long term (current) use of oral hypoglycemic drugs
CPT/HCPCS: 36415; 51701; 74177; 80053; 81001; 82553; 83690; 84484; 85025; 93005; 96361; 96374; 96375; 96376; A4353; J1885; J2270; J2405; J7050

== ENCOUNTER 2016-10-29 18:06 | Emergency (ER) | payer SELFPAY ==
[2016-10-29] MEDS ORDERED: HYDROcodone/Acetaminophen 5/325 mg Tablet ONE (18:49)
[2016-10-29] MEDS ORDERED: Diazepam 5 MG TAB ONE (18:49)
[2016-10-29] MEDS ORDERED: Dexamethasone 4 MG TAB ONE (18:50)
[2016-10-30] MEDS ORDERED: HYDROcodone/Acetaminophen 5/325 mg Tablet ONE (00:07)
[2016-10-30] MEDS ORDERED: Dexamethasone 4 MG TAB ONE (00:08)
[2016-10-30] MEDS ORDERED: Ketorolac Tromethamine 60 MG/2 ML VIAL ONE (00:08)
== END 2016-10-29 18:52 | disposition home or self-care (01) ==
LOC: MADERS 18:06
DX: M54.41 Lumbago with sciatica, right side (principal); E11.9 Type 2 diabetes mellitus without complications; F41.9 Anxiety disorder, unspecified; F17.210 Nicotine dependence, cigarettes, uncomplicated
CPT/HCPCS: 99283; J8540

== ENCOUNTER 2016-11-21 11:30 | Emergency (ER) | payer SELFPAY ==
[2016-11-21] MEDS ORDERED: Diazepam 5 MG TAB ONE (12:13)
[2016-11-21] MEDS ORDERED: HYDROcodone/Acetaminophen 10/325 mg Tablet ONE (12:13)
[2016-11-21] MEDS ORDERED: Naproxen 500 MG TAB ONE (12:13)
--- NOTE | 2016-11-21 13:31 | CT ---
CT PELVIS NONCONTRAST: History: Right pelvic pain. FINDINGS: The sacrum is intact. No acute fracture, dislocation, or aggressive osseous erosions are evident. De generative changes of the lower lumbar spine are partially visualized. Urinary bladder is intact. Lack of contrast limits evaluation for soft tissue abnormalities. No free fluid is evident. There is mild joint space narrowing and osteophytosis involving each hip. IMPRESSION: 1. Mild osteoarthritic changes of each hip. No acute abnormalities are demonstrated. POS: ALBERTO
--- NOTE | 2016-11-21 13:44 | CT ---
LUMBAR SPINE CT WITHOUT CONTRAST: History: One week of back pain, no reported trauma. Comparison: None. Technique: Lumbar spine CT is performed without intravenous or intrathecal contrast administration. Axial images are performed from the distal thoracic spine to the sacrum. Sagittal and coronal reform atted images are submitted for interpretation. FINDINGS: Visualized mediastinum and aorta are unremarkable. Visualized solid organs have appropriate attenuat ion. No evidence of bowel obstruction. Normal caliber appendix is identified. Uterus appears to be s urgically absent. Left and right adnexal structures are unremarkable. There is nonspecific minimal thickening involving the right lower lobe. There appears to be emphysem atous change involving the left lower lobe with an ill-defined opacity measuring 3.0 x 1.8 cm. Evalu ation is limited and incomplete. This finding is noted on a CT from February 2015. Lumbar vertebral body height is maintained. There is no fracture. No spondylolisthesis or spondylosi s. Vacuum disc phenomena at L5-S1. Endplate sclerosis is noted at the lumbosacral junction. On the c oronal reformatted images, there is no malalignment. Vertebral body heights are maintained. No fract ure. Limited evaluation of the central spinal canal and neural foramina by technique. T8-9 through T12-L1: No significant central canal stenosis. Foramina are patent bilaterally. L1-2: No significant central canal stenosis or foraminal narrowing. L2-3: No significant central canal stenosis or foraminal narrowing. L3-4: No significant central canal stenosis or foraminal narrowing. L4-5: No significant central canal stenosis or foraminal narrowing. L5-S1: Severe loss of disc space height due to vacuum disc phenomenon. Possible disc material encroa meredith, left and right subarticular zones. No evidence of obscuration of either traversing S1 nerve r oot. No significant stenosis of the thecal sac. Moderate right and moderate to severe left foraminal narrowing. IMPRESSION: 1. Degenerative changes of the lumbosacral junction. 2. Abnormal appearance of the left lower lobe lung parenchyma, unchanged from February 2015. Findings are presumed to be chronic. POS: LAUREEN
== END 2016-11-21 13:52 | disposition home or self-care (01) ==
LOC: MADERS 11:30
DX: M54.41 Lumbago with sciatica, right side (principal); E11.9 Type 2 diabetes mellitus without complications; F41.9 Anxiety disorder, unspecified; F17.210 Nicotine dependence, cigarettes, uncomplicated
CPT/HCPCS: 72131; 72192

== ENCOUNTER 2018-02-21 20:01 | Emergency (ER) | payer SELFPAY ==
[2018-02-21] MEDS ORDERED: Ibuprofen 800 MG TAB ONE (20:25)
[2018-02-21] MEDS ORDERED: HYDROcodone/Acetaminophen 10/325 mg Tablet ONE (20:25)
== END 2018-02-21 20:29 | disposition home or self-care (01) ==
LOC: MADERS 20:01
DX: S86.011A Strain of right Achilles tendon, initial encounter (principal); E11.9 Type 2 diabetes mellitus without complications; F41.9 Anxiety disorder, unspecified; F17.210 Nicotine dependence, cigarettes, uncomplicated; Z79.899 Other long term (current) drug therapy; X58.XXXA Exposure to other specified factors, initial encounter
CPT/HCPCS: 99283

== ENCOUNTER 2018-08-21 22:33 | Emergency (ER) | payer SELFPAY ==
[2018-08-21 23:20] LABS: #Basophils 0.1 thou/uL (0.0-0.2); #Eosinphils 0.2 thou/uL (0.0-0.7); #Lymphocytes 2.4 thou/uL (1.20-3.40); #Monocytes 0.5 thou/uL (0.11-0.59); %Basophils 1.2 % (0.0-1.0); %Eosinophils 2.2 % (0.0-10.0); %Lymphocytes 28.9 % (21.0-51.0); %Monocytes 6.3 % (0.0-10.0); %Neutrophils 61.4 % (42.0-75.0); Hemoglobin 14.8 g/dL (12.0-16.0); Mean Corpuscular HGB CONC 33.7 g/dL (32.0-36.0); Mean Corpuscular Hemoglobin 29.9 pg (27.0-31.0); Mean Corpuscular Volume 88.5 fL (78.0-98.0); Mean Platelet Volume 9.7 fL (7.4-10.4); Platelet Count 214 thou/uL (130-400); RBC Distribution Width 13.3 % (11.5-14.5); Red Blood Cell (RBC) Count 4.97 mill/uL (4.20-5.40); White Blood Cell (WBC) Count 8.1 thou/uL (4.8-10.8)
[2018-08-21] MEDS ORDERED: Sodium Chloride 0.9% 1,000 ML ONE (23:26)
[2018-08-21 23:52] LABS: ALT (SGPT) 20 U/L (8-55); AST (SGOT) 14 U/L (5-34); Albumin 4.1 g/dL (3.5-5.0); Alkaline Phosphatase 80 U/L (40-150); Anion Gap 14 mmol/L (10-20); BUN (Urea Nitrogen) 11 mg/dL (9.8-20.1); Bilirubin, Total 0.5 mg/dL (0.2-1.2); Calc. Creatinine Clearance 0 mL/min (70-130); Calcium 9.2 mg/dL (7.8-10.44); Carbon Dioxide 26 mmol/L (22-29); Chloride 100 mmol/L (98-107); Estimated GFR-MDRD 68; Globulin 2.6 g/dL (2.4-3.5); Glucose 292 mg/dL (70-105); Potassium 4.1 mmol/L (3.5-5.1); Protein, Total 6.7 g/dL (6.0-8.3); Sodium 136 mmol/L (136-145)
== END 2018-08-22 00:41 | disposition home or self-care (01) ==
LOC: MADERS 22:33
DX: E11.65 Type 2 diabetes mellitus with hyperglycemia (principal); M19.90 Unspecified osteoarthritis, unspecified site; F41.9 Anxiety disorder, unspecified; F17.210 Nicotine dependence, cigarettes, uncomplicated
CPT/HCPCS: 36416; 80053; 82330; 82803; 85014; 85025; 93005; 96360; J7050

== ENCOUNTER 2023-03-18 05:10 | Emergency (ER) | payer OTHER, SELFPAY ==
[2023-03-18] MEDS ORDERED: Lidocaine 1% PF 5 ML VIAL ONE (05:24)
== END 2023-03-18 05:55 | disposition home or self-care (01) ==
LOC: MADERS 05:10
DX: S61.011A Laceration without foreign body of right thumb without damage to nail, initial encounter (principal); E11.9 Type 2 diabetes mellitus without complications; M19.90 Unspecified osteoarthritis, unspecified site; F17.210 Nicotine dependence, cigarettes, uncomplicated; W26.8XXA Contact with other sharp object(s), not elsewhere classified, initial encounter; Z79.84 Long term (current) use of oral hypoglycemic drugs
CPT/HCPCS: 12002

== ENCOUNTER 2023-06-13 20:25 | Emergency (ER) | payer OTHER | END 2023-06-13 21:19 | disposition home or self-care (01) | LOC: MADERS 20:25 | DX: K11.5 Sialolithiasis (principal); E11.9 Type 2 diabetes mellitus without complications; F17.210 Nicotine dependence, cigarettes, uncomplicated | CPT/HCPCS: 99283 ==